=== PATIENT | male | born 1945 | race Caucasian/White ===

== ENCOUNTER 2023-11-14 12:24 | Outpatient (CLI) | payer MEDICARE, SELFPAY ==
--- NOTE | ~2023-11-14 | XR_ITS ---
XR abdomen/kub 1V Ordering provider: Lucas Hdz MD History: . GROSS HEMATURIA . Comparison: None. FINDINGS: BOWEL: Nonobstructive bowel gas pattern. ORGANOMEGALY: None. SIGNIFICANT PATHOLOGIC CALCIFICATIONS: Stone is seen in the right kidney which is projected over the last rib. Small calcification seen in the left sacral area which may be a stone. OTHER: No free air is seen under the diaphragm. Degenerative spine. IMPRESSION: No evidence of obstruction seen. Stone in the right kidney lower pole. Possible stone in the left lower ureter. Clinical correlation advised. Reviewed, dictated and finalized at location A.
--- NOTE | ~2023-11-14 | CT_ITS ---
EXAMINATION: CT abdomen pelvis wo/w con DATE: 11/14/2023 13:33 INDICATION: Gross hematuria TECHNIQUE: Computed tomography (CT) of the abdomen and pelvis was performed without intravenous contr ast. CT of the abdomen and pelvis was then performed with a total of 130 mL Omnipaque-350 intravenous contrast using a double-bolus technique for simultaneous opacification of the renal parenchyma and r enal collecting system. The dose-length product was 3075.00 mGy-cm. COMPARISON: None FINDINGS: Minimal dependent atelectasis in the bilateral lower lobes. Heart size is normal. Atherosclerotic cor onary artery calcification. No pericardial or pleural effusion. Calcified mediastinal lymph nodes con sistent with old granulomatous disease. Cholecystectomy clips at the gallbladder fossa. Liver, spleen , pancreas and bilateral adrenal glands are normal. Diverticulum along the sigmoid colon without marce cent inflammatory stranding to suggest diverticulitis. Small bowel and appendix are normal. For gorge meter nonobstructing stone at an inferior calyx of the right kidney. Otherwise normal bilateral kidne ys and ureters with no other urolithiasis and with no hydronephrosis. Bladder is normal. Prostatomega ly measuring 4.4 x 3.6 cm. 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 IMPRESSION: 1. 4 mm nonobstructing right renal stone. Reviewed, dictated and finalized at location B.
[2023-11-14 13:12] LABS: Estimated Glomerular Filt Rate > 60
== END 2023-11-14 12:25 | disposition home or self-care (01) ==
PROVIDERS: Visit Provider Urology
DX: N20.0 Calculus of kidney (principal); R31.0 Gross hematuria
CPT/HCPCS: 74018; 74178; Q9967

== ENCOUNTER 2024-11-14 09:55 | Outpatient (CLI) | payer MEDICARE, SELFPAY ==
--- NOTE | ~2024-11-14 | XR_ITS ---
XR abdomen/kub 1V Ordering provider: Lucas Hdz MD History: . CALCIUM KIDNEY STONE, PT STATES POSSIBLY RT SIDE . Comparison: None. FINDINGS: BOWEL: Nonobstructive bowel gas pattern. ORGANOMEGALY: None. SIGNIFICANT PATHOLOGIC CALCIFICATIONS: None. OTHER: No free air is seen under the diaphragm. Degenerative the spine. Bilateral mild osteoarthritic changes. IMPRESSION: NO ACUTE ABDOMINAL FINDINGS. Reviewed, dictated and finalized at location A.
== END 2024-11-14 09:56 | disposition home or self-care (01) ==
PROVIDERS: PCP Pediatrics; Visit Provider Urology
DX: N20.0 Calculus of kidney (principal)
CPT/HCPCS: 74018